=== PATIENT | female | born 1980 | race American Indian/Alaskan Native ===

== ENCOUNTER 2019-01-25 07:59 | Emergency (ER) | payer OTHER ==
[2019-01-25 08:08] VITALS: BP 130/57
[2019-01-25] MEDS ORDERED: KETOROLAC 30 MG/1 ML INJ IV ONE (08:24)
--- NOTE | 2019-01-25 08:25 | Emergency Department Report ---
ED Abdominal Pain HPI - General Chief Complaint: Abdominal Pain Stated Complaint: LOWER ABD PAIN Time Seen by Provider: 01/25/19 08:13 Source: patient Mode of arrival: Ambulatory Limitations: No Limitations - History of Present Illness Initial Comments: This is a 35-year-old -[place] female who presents to the emergency room with right sided abdominal pain for 45 minutes. Patient reports pain is worse with movement and an attempt to pass bound. Reports pain is sharp stabbing intensity that is constant. She reports a normal bowel movement yesterday. States have a sensation to pass bowels but unable today. No significant past medical history other than surgical thyroidectomy. Unsure of last menstrual period due to IUD control. Denies urinary frequency, urgency, dysuria, vaginal discharge, fever, chills, or back pain. MD Complaint: abdominal pain Onset/Timin -: minutes(s) Location: RUQ, RLQ Radiation: none Migration to: no migration Severity: severe Severity scale (0 -10): 10 Quality: stabbing, sharp Consistency: constant Improves With: nothing Worsens With: bowel movement, movement Associated Symptoms: denies other symptoms - Related Data Allergies Allergy/AdvReac Type Severity Reaction Status Date / Time NSAIDS (Non-Steroidal AdvReac Itching Verified 01/25/19 08:35 Anti-Inflamma ED Review of Systems ROS: Stated complaint: LOWER ABD PAIN Other details as noted in HPI Constitutional: denies: chills, fever Respiratory: denies: cough, shortness of breath, wheezing Cardiovascular: denies: chest pain, palpitations Gastrointestinal: abdominal pain. denies: nausea, diarrhea Genitourinary: denies: urgency, dysuria, discharge Musculoskeletal: denies: back pain, joint swelling, arthralgia Skin: denies: rash, lesions Neurological: denies: headache, weakness, paresthesias Psychiatric: denies: anxiety, depression ED Past Medical Hx - Past Medical History Previous Medical History?: No - Surgical History Past Surgical History?: Yes Additional Surgical History: Thyroidectomy - Social History Smoking Status: Never Smoker ED Physical Exam - General Limitations: No Limitations General appearance: alert, in no apparent distress, obese - Respiratory Respiratory exam: Present: normal lung sounds bilaterally. Absent: respiratory distress - Cardiovascular Cardiovascular Exam: Present: regular rate, normal rhythm. Absent: systolic murmur, diastolic murmur, rubs, gallop - GI/Abdominal GI/Abdominal exam: Present: soft, tenderness (left lower quadrant and right lower quadrant), normal bowel sounds. Absent: distended, guarding, rebound, rigid, organomegaly, mass, hernia - Back Exam Back exam: Present: CVA tenderness (R). Absent: CVA tenderness (L), rash noted - Neurological Exam Neurological exam: Present: alert, oriented X3, normal gait - Psychiatric Psychiatric exam: Present: normal affect, normal mood - Skin Skin exam: Present: warm, dry, intact, normal color. Absent: rash ED Course Vital Signs 01/25/19 01/25/19 08:07 08:39 Temperature 97.9 F Pulse Rate 63 Respiratory 20 22 Rate Blood Pressure 130/57 O2 Sat by Pulse 100 Oximetry ED Medical Decision Making - Lab Data Result diagrams: 01/25/19 09:31 01/25/19 09:31 Lab Results 01/25/19 01/25/19 01/25/19 Range/Units 08:30 09:31 09:31 WBC 6.0 (4.5-11.0) K/mm3 RBC 4.26 (3.65-5.03) M/mm3 Hgb 13.0 (10.1-14.3) gm/dl Hct 38.5 (30.3-42.9) % MCV 91 (79-97) fl MCH 31 (28-32) pg MCHC 34 (30-34) % RDW 13.3 (13.2-15.2) % Plt Count 228 (140-440) K/mm3 Lymph % (Auto) 28.6 (13.4-35.0) % [place] % (Auto) 6.4 (0.0-7.3) % Eos % (Auto) 2.6 (0.0-4.3) % Baso % (Auto) 0.5 (0.0-1.8) % Lymph # 1.7 (1.2-5.4) K/mm3 [place] # 0.4 (0.0-0.8) K/mm3 Eos # 0.2 (0.0-0.4) K/mm3 Baso # 0.0 (0.0-0.1) K/mm3 Seg Neutrophils % 61.9 (40.0-70.0) % Seg Neutrophils # 3.7 (1.8-7.7) K/mm3 Sodium 137 (137-145) mmol/L Potassium 4.2 (3.6-5.0) mmol/L Chloride 101.9 (98-107) mmol/L Carbon Dioxide 25 (22-30) mmol/L Anion Gap 14 mmol/L BUN 8 (7-17) mg/dL Creatinine 0.8 (0.7-1.2) mg/dL Estimated GFR > 60 ml/min BUN/Creatinine Ratio 10 % Glucose 84 (65-100) mg/dL Calcium 8.8 (8.4-10.2) mg/dL Total Bilirubin 0.60 (0.1-1.2) mg/dL AST 19 (5-40) units/L ALT 16 (7-56) units/L Alkaline Phosphatase 55 (35-129) units/L Total Protein 6.9 (6.3-8.2) g/dL Albumin 4.2 (3.9-5) g/dL Albumin/Globulin Ratio 1.6 % Urine Color Yellow (Yellow) Urine Turbidity Clear (Clear) Urine pH 7.0 (5.0-7.0) Ur Specific [place] 1.017 (1.003-1.030) Urine Protein <15 mg/dl (Negative) mg/dL Urine Glucose (UA) Neg (Negative) mg/dL Urine Ketones Neg (Negative) mg/dL Urine Blood Neg (Negative) Urine Nitrite Neg (Negative) Urine Bilirubin Neg (Negative) Urine Urobilinogen < 2.0 (<2.0) mg/dL Ur Leukocyte Esterase Neg (Negative) Urine WBC (Auto) 1.0 (0.0-6.0) /HPF Urine RBC (Auto) 2.0 (0.0-6.0) /HPF U Epithel Cells (Auto) 15.0 H (0-13.0) /HPF Urine Mucus Few /HPF Urine HCG, Qual Negative (Negative) - Radiology Data Radiology results: report reviewed CT ABDOMEN AND PELVIS WITH CONTRAST HISTORY: Right-sided abdominal pain COMPARISON: None TECHNIQUE: Routine abdominal and pelvic CT exam performed following intravenous contrast administration. The patient received 100 mL of IV Omnipaque 300. All CT scans at this location are performed using CT dose reduction for ALARA by means of automated exposure control. FINDINGS: CT ABDOMEN: Lung Bases: No significant abnormality. Liver: No significant abnormality. Biliary: No significant abnormality. Spleen: No significant abnormality. Unenlarged. Pancreas: No significant abnormality. Adrenals: No significant abnormality. Kidneys: No significant abnormality. Lymphatics: No lymphadenopathy. Vasculature: No significant abnormality. Bowel/Peritoneum: No significant abnormality. No free air. No free fluid. Normal appendix. CT PELVIC: : There is a small amount of free fluid in the pelvis is likely physiologic. There is an IUD in the uterus. Small follicles are seen in both ovaries. Lymphatics: No lymphadenopathy. Osseous Structures: No aggressive appearing osseous lesions. Additional Findings: None IMPRESSION: 1. No acute findings. 2. Small amount of free fluid in the pelvis, likely physiologic and possibly indicative of recently ruptured ovarian cyst. - Medical Decision Making This is a 38 y.o. female that presents with abdominal pain that started today. Patient is stable and was examined by me. Vitals stable. Obtained CMP, CBC, lipase, & UA. On focal exam there is right lower quadrant and left lower quadrant tenderness, negative rebound, no rigidity, or acute abdomen. All labs are unremarkable. CT of abdomen and pelvis obtained. 1. No acute findings. 2. Small amount of free fluid in the pelvis, likely physiologic and possibly indicative of recently ruptured ovarian cyst. Given analgesics by IV once in ER. Referral to dry cleaning counter clerk or continued care. Discussed plan with patient and agreed to plan. No further questions noted by the patient. Discharged home in stable condition. Follow up with PCP in 2-3 days. Critical care attestation.: If time is entered above; I have spent that time in minutes in the direct care of this critically ill patient, excluding procedure time. ED Disposition Clinical Impression: Abdominal pain Qualifiers: Abdominal location: lower abdomen, unspecified Qualified Code(s): R10.30 - Lower abdominal pain, unspecified Disposition: TO HOME OR SELFCARE Is pt being admited?: No Condition: Stable Instructions: Abdominal Pain (ED) Additional Instructions: Follow-up with the dry cleaning counter clerk. Take Tylenol every 8 hours as needed for pain. Return to the emergency room if worsening symptoms. Referrals: [facility] [Provider Group] - 3-5 Days [facility]Provider Group] - 3-5 Days Time of Disposition: 11:24
[2019-01-25] MEDS ORDERED: MORPHINE 2 MG/1 ML INJ IV ONE (08:33)
[2019-01-25 09:35] LABS: Bilirubin,Urine NEG (Negative); Blood,Urine NEG (Negative); Color,Urine Yellow (Yellow); Mucus,Urine FEW /HPF; Protein,Urine <15 mg/dL mg/dL (Negative); Urobilinogen,Urine < 2.0 mg/dL (<2.0)
[2019-01-25 09:42] LABS: HCG Qualitative,Urine Negative (Negative)
[2019-01-25 09:42] LABS: Basophils % (Auto) 0.5 % (0.0-1.8); Eosinophils # (Auto) 0.2 K/mm3 (0.0-0.4); Eosinophils % (Auto) 2.6 % (0.0-4.3); Hematocrit 38.5 % (30.3-42.9); Lymphocytes # (Auto) 1.7 K/mm3 (1.2-5.4); Lymphocytes % (Auto) 28.6 % (13.4-35.0); Mean Corpuscular HGB Conc 34 % (30-34); Mean Corpuscular Volume 91 fl (79-97); Monocytes # (Auto) 0.4 K/mm3 (0.0-0.8); Monocytes % (Auto) 6.4 % (0.0-7.3); Platelet Count 228 K/mm3 (140-440); Red Blood Count 4.26 M/mm3 (3.65-5.03); Red Cell Distribution Width 13.3 % (13.2-15.2)
[2019-01-25 10:05] LABS: Alanine Aminotransferase 16 units/L (7-56); Albumin 4.2 g/dL (3.9-5); BUN/Creatinine Ratio 10; Blood Urea Nitrogen 8 mg/dL (7-17); Calcium 8.8 mg/dL (8.4-10.2); Hemolysis Index 21
--- NOTE | 2019-01-25 10:53 | Cat Scan Report ---
CT ABDOMEN AND PELVIS WITH CONTRAST HISTORY: Right-sided abdominal pain COMPARISON: None TECHNIQUE: Routine abdominal and pelvic CT exam performed following intravenous contrast administrat ion. The patient received 100 mL of IV Omnipaque 300. All CT scans at this location are performed usi ng CT dose reduction for ALARA by means of automated exposure control. FINDINGS: CT ABDOMEN: Lung Bases: No significant abnormality. Liver: No significant abnormality. Biliary: No significant abnormality. Spleen: No significant abnormality. Unenlarged. Pancreas: No significant abnormality. Adrenals: No significant abnormality. Kidneys: No significant abnormality. Lymphatics: No lymphadenopathy. Vasculature: No significant abnormality. Bowel/Peritoneum: No significant abnormality. No free air. No free fluid. Normal appendix. CT PELVIC: : There is a small amount of free fluid in the pelvis is likely physiologic. There is an IUD in the uterus. Small follicles are seen in both ovaries. Lymphatics: No lymphadenopathy. Osseous Structures: No aggressive appearing osseous lesions. Additional Findings: None IMPRESSION: 1. No acute findings. 2. Small amount of free fluid in the pelvis, likely physiologic and possibly indicative of recently r uptured ovarian cyst. Signer Name: Bunny Rob MD Signed: 01/25/2019 10:48 AM Workstation Name: [email or web address]
== END 2019-01-25 11:42 | disposition home or self-care (01) ==
LOC: ED 07:59
DX: R10.31 Right lower quadrant pain (principal); R10.32 Left lower quadrant pain; E89.0 Postprocedural hypothyroidism; Z88.7 Allergy status to serum and vaccine
CPT/HCPCS: 36415; 74177; 80053; 81001; 81025; 85025; 96374; 99284; J2270; Q9967; J1885